=== PATIENT | female | born 1995 ===

== ENCOUNTER 2022-11-30 14:47 | Outpatient (REF) | payer OTHER, SELFPAY ==
[2022-12-01 17:57] LABS: CT PCR DETECTED (Not Detect.); NG PCR NOT DETECTED (Not Detect.)
== END 2022-11-30 14:48 | disposition home or self-care (01) ==
LOC: HO.LAB 14:47
PROVIDERS: Visit Provider Nurse Practitioner Family
DX: Z20.2 Contact with and (suspected) exposure to infections with a predominantly sexual mode of transmission (principal)
CPT/HCPCS: 0353U

== ENCOUNTER 2024-04-12 10:12 | Outpatient (AMB) | payer OTHER, SELFPAY ==
--- OUTSIDE RECORDS SUMMARY | 2024-04-12 10:14 | XMS_ITS | Continuity of Care Document ---
Author Organization [facility] ter Address [address] [place] [phone]- Care Team Providers Care Optometric Technologist Name Role Phone Not on Staff, PCP Primary Care Physician Unavail able [facility] Date(s): 05/14/20 - 05/15/[address] [address]- [facility] Discharge Disposition: A-D/C Home Attending Physician: John Jorge MD Admitting Physician: John Jorge MD Referring Physician: John Jorge MD Allergies, Adverse Reactions, Alerts No Known Medication Allergies Substance Reaction Severity Status NKA Active Immunizations Given and Recorded Vaccine Date Status Refusal Reason tetanus/diphtheria/pertussis, acel(Tdap) 05/08/18 Given Medications No Home Meds Maintenance, 02/12/18 12:16:25 EDT, Compound Start Date: 02/12/18 Status: Ordered Problem List Condition Effective Dates Status Health Status Inform ant Anemia affecting , antepartum(Confirmed) Active Results Orders for Microbiology Reports Name Date Urine Culture (Culture Urine) 05/14/20 Microbiology Reports TEST:Urine Culture STATUS:Auth (Verified) BODY SITE: SOURCE:URINE COLLECTED DATE/TIME:05/14/20 10:20 PM Urine Culture SPECIMEN DESCRIPTION : URINE CLEAN CATCH/MIDSTREAM SPECIAL REQUESTS : NONE CULTURE : NO GROWTH REPORT STATUS : FINAL 05/15/2020 Vital Signs Most recent to oldest [Reference Range]: 1 Weight 59.1 kg (05/14/20 9:40 PM) Oxygen Saturation [94-100 %] 100 % (05/14/20 9:54 PM) Pulse Rate [55-90 bpm] 79 bpm (05/14/20 9:54 PM) Blood Pressure [90-138/55-84 mm Hg] 120/ 55mm Hg (05/14/20 9:54 PM) Respiratory Rate [16-30 br/min] 16 br/mi n (05/14/20 9:54 PM) Temperature [96.8-100.4 DegF] 97.9 DegF (05/14/20 9:40 PM) Mode of Delivery (Oxygen) Room air (05/14/20 9:54 PM) Blood pressure sites Arm, left (05/14/20 9:54 PM) Temperature Route Oral (05/14/20 9:40 PM) Dry Weight 59.1 kg (05/14/20 9:40 PM) Weight Obtained Via Standing scale (05/14/20 9:40 PM) Dry Weight Obtained Via Standing scale (05/14/20 9:40 PM) Social History Social History Type Response Smoking Status Former smoker; Type: Cigarettes entered on: 02/12/18 Sex
--- OUTSIDE RECORDS SUMMARY | 2024-04-12 10:14 | XMS_ITS | Continuity of Care Document ---
Author Organization [facility] Address [address] [place] [id number]- Care Team Providers Care Stained Glass Painter Name Role Phone Not on Staff, PCP Primary Care Physician Unavail able [facility]counter [facility] Date(s): 01/03/22 - 02/02/22 [facility] [address] [place] [id number] Allergies, Adverse Reactions, Alerts No Known Allergies Immunizations Given and Recorded Vaccine Date Status Refusal Reason SARS-CoV-2 (COVID-19) mRNA-1272 vaccine 05/21/21 R ecorded tetanus/diphtheria/pertussis, acel(Tdap) 05/08/18 Given Medications acetaminophen 325 mg oral tablet 650 mg, By Mouth, Every 4 hours, not to exceed 4000 mg/day, # 60 tablet, Refills 0, Tot. Refills 0,Maintenance, 08/13/20 12:55:00 EST, Route to Pharmacy Electronically, [facility]/pharmacy #[id number], Partial fill upon patient request, 153, cm, 08/13/20 4:49:00... Start Date: 08/13/20 Status: Ordered docusate sodium 100 mg oral capsule 1 capsule = 100 mg, By Mouth, 2 times a day, # 60 capsule, 0 Refills, Maintenance, 08/13/20 12:55:00 EST, Capsule, [facility]/pharmacy #[id number], Partial fill upon patient request, 153, cm, 08/13/20 4:49:00 EST, Height, 70, kg, 08/12/20 6:38:00 EST, Dry Weight Start Date: 08/13/20 Status: Ordered ibuprofen 800 mg oral tablet 800 mg, 1, tablet, By Mouth, Every 8 hours, not to exceed 3200 mg/day with food or milk, # 60 tablet, Refills 1, Tot. Refills 1, Maintenance, 08/13/20 12:55:00 EST, Route to Pharmacy Electronically, [facility]/pharmacy #[id number], Partial fill upon patient reque... Start Date: 08/13/20 Status: Ordered No Home Meds Maintenance, 02/12/18 12:16:25 EDT, Compound Start Date: 02/12/18 Status: Ordered simethicone 80 mg oral tablet, chewable 80 mg, Chew, 3 times a day, PRN, # 48 tablet, Refills 0, Tot. Refills 0, Maintenance, Gas, 08/13/2012:55:00 EST, Route to Pharmacy Electronically, [facility]/pharmacy #[id number], Partial fill upon patient request, 153, cm, 08/13/20 4:49:00 EST, Height, 70, kg, 1... Start Date: 08/13/20 Status: Ordered Problem List Condition Effective Dates Status Health Status Inform ant Anemia affecting , antepartum(Confirmed) Active Social History Social History Type Response Smoking Status Former smoker; Type: Cigarettes entered on: 02/12/18 Sex
--- OUTSIDE RECORDS SUMMARY | 2024-04-12 10:14 | XMS_ITS | Continuity of Care Document ---
Author Organization [facility] Address [address] [place] [phone]- Care Team Providers Care Leaflet Or Newspaper Deliverer Name Role Phone Not on Staff, PCP Primary Care Physician Unavail able [facility]counter [facility] Date(s): 02/17/22 - 03/19/22 [facility] [address] [place] [id number] Allergies, Adverse Reactions, Alerts No Known Allergies Immunizations Given and Recorded Vaccine Date Status Refusal Reason SARS-CoV-2 (COVID-19) mRNA-1273 vaccine 05/21/21 R ecorded tetanus/diphtheria/pertussis, acel(Tdap) 05/08/18 Given Medications acetaminophen 325 mg oral tablet 650 mg, By Mouth, Every 4 hours, not to exceed 4000 mg/day, # 60 tablet, Refills 0, Tot. Refills 0,Maintenance, 08/13/20 12:55:00 EST, Route to Pharmacy Electronically, [facility]/pharmacy #[id number], Partial fill upon patient request, 153, [...] 08/13/20 12:55:00 EST, Route to Pharmacy Electronically, [facility]/pharmacy #[id number], Partial fill upon patient reque... Start Date: 08/13/20 Status: Ordered No Home Meds Maintenance, 02/12/18 12:16:25 EDT, Compound Start Date: 02/12/18 Status: Ordered simethicone 80 mg oral tablet, chewable 80 mg, Chew, 3 times a day, PRN, # 48 tablet, Refills 0, Tot. Refills 0, Maintenance, Gas, 08/13/2012:55:00 EST, Route to Pharmacy Electronically, [facility]/pharmacy #[id number], Partial fill upon patient request, 153, cm, 08/13/20 4:49:00 EST, Height, 70, kg, 1... Start Date: 08/13/20 Status: Ordered Problem List Condition Effective Dates Status Health Status Inform ant Anemia affecting , antepartum(Confirmed) Active Social History Social History Type Response Smoking Status Former smoker; Type: Cigarettes entered on: 02/12/18 Sex
--- OUTSIDE RECORDS SUMMARY | 2024-04-12 10:14 | XMS_ITS | Continuity of Care Document ---
Author Organization [facility] ter Address [address] [place] [phone]- Care Team Providers Care Slug Press Operator Name Role Phone Not on Staff, PCP Primary Care Physician Unavail able [facility]counter [facility] Date(s): 07/22/22 - 07/24/[address] [address]- Discharge Disposition: A-D/C Home Attending Physician: John Jorge MD Admitting Physician: John Jorge MD Referring Physician: John Jorge MD Allergies, Adverse Reactions, Alerts No Known Allergies Immunizations Given and Recorded Vaccine Date Status Refusal Reason influenza virus vaccine, inactivated 1 07/24/22 Gi steven influenza virus vaccine, inactivated 10/08/19 Vahid rded SARS-CoV-2 (COVID-19) mRNA-1273 vaccine 04/01/22 R ecorded SARS-CoV-2 (COVID-19) mRNA-1273 vaccine 06/18/21 R ecorded SARS-CoV-2 (COVID-19) mRNA-1273 vaccine 05/21/21 R ecorded tetanus-diphtheria toxoids (Td) 10/08/19 Recorded Meningococcal Conjugate Vaccine 10/08/19 Recorded Meningococcal Conjugate Vaccine 02/04/09 Recorded Measles/Mumps/Rubella Virus Vaccine 10/08/19 Recor ded Measles/Mumps/Rubella Virus Vaccine 04/08/98 Recor ded tetanus/diphtheria/pertussis, acel(Tdap) 05/08/18 Given tetanus/diphtheria/pertussis, acel(Tdap) 08/06/08 Recorded Hepatitis A Pediatric Vaccine 06/21/11 Recorded Hepatitis A Pediatric Vaccine 02/04/09 Recorded Human Papillomavirus Vaccine 02/04/09 Recorded Human Papillomavirus Vaccine 10/07/08 Recorded Human Papillomavirus Vaccine 08/06/08 Recorded Varicella Virus Vaccine 10/07/08 Recorded Varicella Virus Vaccine 11/19/98 Recorded Poliovirus Vaccine, Inactivated 05/30/01 Recorded Poliovirus Vaccine, Inactivated 01/20/97 Recorded Poliovirus Vaccine, Inactivated 96 Recorded Poliovirus Vaccine, Inactivated 96 Recorded diphtheria/tetanus/pertussis, acel(DTaP) 05/30/01 Recorded diphtheria/tetanus/pertussis, acel(DTaP) 04/08/98 Recorded diphtheria/tetanus/pertussis, acel(DTaP) 01/20/97 Recorded diphtheria/tetanus/pertussis, acel(DTaP) 96 Recorded diphtheria/tetanus/pertussis, acel(DTaP) 96 Recorded hepatitis B pediatric vaccine 96 Recorded hepatitis B pediatric vaccine 96 Recorded hepatitis B pediatric vaccine 96 Recorded 1Early/Late Reason: Early/Late Reason: Patient Refused Medications acetaminophen 325 mg oral tablet 650 mg, By Mouth, Every 4 hours, not to exceed 4000 mg/day, # 60 tablet, Refills 0, Tot. Refills 0,Maintenance, 08/13/20 12:55:00 EST, Route to Pharmacy Electronically, [facility]/pharmacy #[id number], Partial fill upon patient request, 153, cm, 08/13/20 4:49:00... Start Date: 08/13/20 Status: Ordered Acetaminophen Tablet 650 mg, Tablet, By Mouth, (1-3), may give 325mg per patient preference and re- dose with 325mg within 4 hours if needed. Patient should only receive a total of 650mg of Acetaminophen every 4 hours., 07/24/22 14:00:00 EST Start Date: 07/24/22 Stop Date: 07/24/22 Status: Completed Acetaminophen Tablet 650 mg, Tablet, By Mouth, (1-3), may give 325mg per patient preference and re- dose with 325mg within 4 hours if needed. Patient should only receive a total of 650mg of Acetaminophen every 4 hours., 07/24/22 2:00:00 EST Start Date: 07/24/22 Stop Date: 07/24/22 Status: Completed docusate sodium 100 mg oral capsule 1 capsule = 100 mg, By Mouth, 2 times a day, # 60 capsule, 0 Refills, Maintenance, 08/13/20 12:55:00 EST, Capsule, [facility]/pharmacy #[id number], Partial fill upon patient [...] 08/13/20 12:55:00 EST, Route to Pharmacy Electronically, [facility]/pharmacy #[id number], Partial fill upon patient reque... Start Date: 08/13/20 Status: Ordered Ibuprofen Tablet 800 mg, Tablet, By Mouth, (4-6), may give 400mg per patient preference and re- dose with 400mg within 8 hours if needed. Patient should only receive a total of 800mg of Ibuprofen every 8 hours., 07/24/22 10:00:00 EST Start Date: 07/24/22 Stop Date: 07/24/22 Status: Completed simethicone 80 mg oral tablet, chewable 80 mg, Chew, 3 times a day, PRN, # 48 tablet, Refills 0, Tot. Refills 0, Maintenance, Gas, 08/13/2012:55:00 EST, Route to Pharmacy Electronically, [facility]/pharmacy #[id number], Partial fill upon patient request, 153, cm, 08/13/20 4:49:00 EST, Height, 70, kg, 1... Start Date: 08/13/20 Status: Ordered Problem List Condition Confirmation Course Effective Dates Status Health St atus Informant Anemia affecting , antepartum Confirmed Active Procedures Procedure Date Related Diagnosis Body Site Status delivery only; 07/22/22 C ompleted Vital Signs Most recent to oldest [Reference Range]: 1 2 3 Height 152.4 cm (07/24/22 8:45 AM) 152.4 cm (07/24/22 12:00 AM) 152.4 cm (07/23/22 4:19 PM) Weight 69 kg (07/22/22 6:14 AM) 69.09 kg (07/21/22 7:39 PM) Oxygen Saturation [94-100 %] 100 % (07/24/22 8:45 AM) 100 % (07/24/22 12:00 AM) 100 % (07/23/22 4:19 PM) Pulse Rate [55-90 bpm] 64 bpm (07/24/22 8:45 AM) 61 bpm (07/24/22 12:00 AM) 80 bpm (07/23/22 4:19 PM) Body Mass Index [18.5-24.99 kg/m2] 29.71 kg/m2 *H* (07/22/22 6:14 AM) 29.75 kg/m2 *H* (07/21/22 7:39 PM) Blood Pressure [90-138/55-84 mm Hg] 127/81mm Hg (07/24/22 8:45 AM) 118/63mm Hg (07/24/22 12:00 AM) 132/57mm Hg (07/23/22 4:19 PM) Respiratory Rate [16-30 br/min] 20 br/min (07/24/22 2:03 PM) 20 br/min (07/24/22 9:58 AM) 20 br/min (07/24/22 9:58 AM) Temperature [96.8-100.4 DegF] 98.4 DegF (07/24/22 8:45 AM) 98.4 DegF (07/24/22 12:00 AM) 98.7 DegF (07/23/22 4:19 PM) Mode of Delivery (Oxygen) Room air (07/24/22 12:00 AM) Room air (07/22/22 4:30 PM) Room air (07/22/22 12:32 PM) Blood pressure sites Arm, right (07/24/22 12:00 AM) Arm, left (07/23/22 12:00 AM) Arm, right (07/22/22 10:02 AM) Temperature Route Oral (07/24/22 8:45 AM) Oral (07/24/22 12:00 AM) Oral (07/23/22 4:19 PM) Dry Weight 69 kg (07/22/22 6:14 AM) 152.4 kg (07/21/22 7:39 PM) Social History Social History Type Response Smoking Status Former smoker; Type: Cigarettes entered on: 5/28/18 Sex Patient Care team information Personnel Name: Not on Staff, PCP
--- OUTSIDE RECORDS SUMMARY | 2024-04-12 10:14 | XMS_ITS | Continuity of Care Document ---
Author Organization [facility] ter Address [address] [place] [phone]- Care Team Providers Care Parts Sales Representative Name Role Phone Alexandra Greco MD Primary Care Physician Encounter [facility] Date(s): 02/26/20 - 02/26/[address] [address]- [facility] Discharge Disposition: A-D/C Home Attending Physician: [...] Inform ant Anemia affecting , antepartum(Confirmed) Active Procedures Procedure Date Related Diagnosis Body Site Status section Complete d Vital Signs Most recent to oldest [Reference Range]: 1 Weight 56.3 kg (02/26/20 9:07 AM) Oxygen Saturation [94-100 %] 100 % (02/26/20 9:07 AM) Pulse Rate [55-90 bpm] 73 bpm (02/26/20 9:07 AM) Blood Pressure [90-138/55-84 mm Hg] 125/ 63mm Hg (02/26/20 9:07 AM) Respiratory Rate [16-30 br/min] 16 br/mi n (02/26/20 9:07 AM) Temperature [96.8-100.4 DegF] 97.8 DegF (02/26/20 9:07 AM) Mode of Delivery (Oxygen) Room air (02/26/20 9:07 AM) Blood pressure sites Arm, right 1 (02/26/20 9:07 AM) Temperature Route Oral (02/26/20 9:07 AM) Weight Obtained Via Standing scale (02/26/20 9:07 AM) 1Result Comment: 24cm small cuff Social History Social History Type Response Smoking Status Former smoker; Type: Cigarettes entered on: 02/12/18 Sex
--- OUTSIDE RECORDS SUMMARY | 2024-04-12 10:14 | XMS_ITS | Continuity of Care Document ---
Author Organization [facility] Address [address] [place] [phone]- Care Team Providers Care Interventional Physiatrist Name Role Phone Not on Staff, PCP Primary Care Physician Unavail able [facility]counter [facility] Date(s): 01/04/22 - 02/03/22 [facility] [address] [place] [id number] Allergies, Adverse Reactions, Alerts No Known Allergies Immunizations Given and Recorded Vaccine Date Status Refusal Reason SARS-CoV-2 (COVID-19) mRNA-4431 vaccine 05/21/21 R ecorded tetanus/diphtheria/pertussis, acel(Tdap) 05/08/18 Given Medications acetaminophen 325 mg oral tablet 650 mg, By Mouth, Every 4 hours, not to exceed 4000 mg/day, # 60 tablet, Refills 0, Tot. Refills 0,Maintenance, 08/13/20 12:55:00 EST, Route to Pharmacy Electronically, [facility]/pharmacy #[id number], Partial fill upon patient request, 153, [...] 08/13/20 12:55:00 EST, Route to Pharmacy Electronically, [facility]/pharmacy #[id number], Partial fill upon patient reque... Start Date: 08/13/20 Status: Ordered No Home Meds Maintenance, 02/12/18 12:16:25 EDT, Compound Start Date: 02/12/18 Status: Ordered simethicone 80 mg oral tablet, chewable 80 mg, Chew, 3 times a day, PRN, # 48 tablet, Refills 0, Tot. Refills 0, Maintenance, Gas, 08/13/2012:55:00 EST, Route to Pharmacy Electronically, [facility]/pharmacy #[id number], Partial fill upon patient request, 153, cm, 08/13/20 4:49:00 EST, Height, 70, kg, 1... Start Date: 08/13/20 Status: Ordered Problem List Condition Effective Dates Status Health Status Inform ant Anemia affecting , antepartum(Confirmed) Active Social History Social History Type Response Smoking Status Former smoker; Type: Cigarettes entered on: 02/12/18 Sex
--- OUTSIDE RECORDS SUMMARY | 2024-04-12 10:14 | XMS_ITS | Continuity of Care Document ---
Author Organization [facility] ter Address [address] [place] [address]- Care Team Providers Care Vertical Boring Mill Operator Name Role Phone Not on Staff, PCP Primary Care Physician Unavail able Encounter [facility] Date(s): 01/15/22 - 02/20/[address] [address]- Attending Physician: John Jorge MD Admitting Physician: John Jorge MD Referring Physician: John Jorge MD Allergies, Adverse Reactions, Alerts No Known Allergies Immunizations Given and Recorded Vaccine Date Status Refusal Reason SARS-CoV-2 (COVID-19) mRNA-2126 vaccine 05/21/21 R ecorded tetanus/diphtheria/pertussis, acel(Tdap) 05/08/18 Given Medications acetaminophen 325 mg oral tablet 650 mg, By Mouth, Every 4 hours, not to exceed 4000 mg/day, # 60 tablet, Refills 0, Tot. Refills 0,Maintenance, 08/13/20 12:55:00 EST, Route to Pharmacy Electronically, [id number], Partial fill upon patient request, [...] 08/13/20 12:55:00 EST, Route to Pharmacy Electronically, [facility]/pharmacy #[id number], Partial fill upon patient reque... Start Date: 08/13/20 Status: Ordered No Home Meds Maintenance, 02/12/18 12:16:25 EDT, Compound Start Date: 02/12/18 Status: Ordered simethicone 80 mg oral tablet, chewable 80 mg, Chew, 3 times a day, PRN, # 48 tablet, Refills 0, Tot. Refills 0, Maintenance, Gas, 08/13/2012:55:00 EST, Route to Pharmacy Electronically, [facility]/pharmacy #[id number], Partial fill upon patient request, 153, cm, 08/13/20 4:49:00 EST, Height, 70, kg, 1... Start Date: 08/13/20 Status: Ordered Problem List Condition Effective Dates Status Health Status Inform ant Anemia affecting , antepartum(Confirmed) Active Social History Social History Type Response Smoking Status Former smoker; Type: Cigarettes entered on: 02/12/18 Sex
[2024-04-12 10:18] VITALS: BP 110/68; PULSE 74; O2SAT 100; BMI 22.6
--- NOTE | 2024-04-12 10:18 | AM.OFFWIN_ITS ---
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 T spot ordered. [facility] Social History Patient Tobacco Use Status: Never used Tobacco Review of Systems Const All systems reviewed & are unremarkable except as noted in HPI and below Physical Exam Vital Signs: Last Vital Signs Pulse 74 04/12/24 10:18 BP 110/68 04/12/24 10:18 Pulse Ox 100 04/12/24 10:18 Oxygen Delivery Method Room Air 04/12/24 10:18 BMI result Body Mass Index 22.6 Const General: no acute distress Orientation/consciousness: patient oriented x3 Eyes General: appearance normal, both eyes and all related structures Resp Effort & Inspection: normal respiratory effort and able to speak in complete sentences Auscultation: clear to auscultation bilaterally Neuro General: patient oriented x3 Psych Mental Status: mental status grossly normal Assessment & Plan Assessment & Plan (1) Screening-pulmonary TB: Code(s): Z11.1 - Encounter for screening for respiratory tuberculosis Plan Patient is 29-year-old female came in today to have an oder for TB titer 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 T spot ordered. Orders: Orders T Spot TB Today Z11.1 - Encounter for screening for respiratory tuberculosis Coding Level of Care Code Est Pt Level 3 (33704) Diagnoses Screening-pulmonary TB Z11.1
== END 2024-04-12 14:32 | disposition home or self-care (01) ==
PROVIDERS: Visit Provider Internal Medicine
DX: Z11.1 Encounter for screening for respiratory tuberculosis (principal)
CPT/HCPCS: 99213

== ENCOUNTER 2024-04-12 10:26 | Outpatient (REF) | payer OTHER, SELFPAY ==
[2024-04-14 19:39] LABS: TS Negative Control Passed; TS Panel A 2; TS Panel B 2; TS Positive Control Passed; TSpotTB Negative (Negative)
== END 2024-04-12 10:27 | disposition home or self-care (01) ==
LOC: HO.HMGCLDS 10:26
PROVIDERS: Visit Provider Internal Medicine
DX: Z11.1 Encounter for screening for respiratory tuberculosis (principal)
CPT/HCPCS: 36415; 86481

== ENCOUNTER 2024-04-19 21:01 | Emergency (ER) | payer OTHER, SELFPAY ==
[2024-04-19 21:04] VITALS: BP 114/67; PULSE 71; RESP 14; TEMP 37.3; O2SAT 99; BMI 23.2
[2024-04-19 23:54] VITALS: BP 114/82; PULSE 77; RESP 16; TEMP 36.1; O2SAT 97
--- NOTE | 2024-04-20 00:16 | ED.DENTAL ---
HPI - Dental/Oral General Chief complaint: Dental/Oral Stated complaint: dental pain Time Seen by Provider: 04/20/24 00:01 Source: patient and RN notes reviewed Mode of arrival: ambulatory Limitations: no limitations History of Present Illness ED Provider: Nuris Hernandez PA-C HPI Narrative: This is a 29-year-old female who presents emergency department with complaints of right upper dental pain x3 days. Patient states that she has a known broken tooth which she broke several weeks ago. She has had increased pain to this area. She denies any fevers or chills. She has a dental appointment on May 02. She has been taking her ibuprofen with minimal relief. No other complaints or concerns at this time. MD Complaint: tooth injury Location: Tooth # (1) Onset (ago): day(s) Duration: constant Severity: moderate Relieving factors: NSAIDs Exacerbating factors: chewing Context: history of dental caries and poor dental care Treatment prior to arrival: none Related Data Previous Rx's ?Medication ?Instructions ?Recorded amoxicillin 875 mg-potassium 1 tab PO BID 7 days #14 tabs 04/20/24 clavulanate 125 mg tablet ibuprofen 600 mg tablet 600 mg PO Q6H PRN pain #30 tabs 04/20/24 Allergies Allergy/AdvReac Type Severity Reaction Status Date / Time No Known Drug Allergies Allergy Mild NONE Verified 04/19/24 21:05 [NO KNOWN DRUG ALLERGIES] Review of Systems Review of Systems: Yes all other systems are reviewed and are negative Constitutional: Constitutional: Reports as per [facility] Social History Social History Patient Tobacco Use Status: Never used Tobacco Advance Directives: No Advance Directives Information Provided: No Do you have a plan to hurt others: No Plan Physical Exam Vital Signs: Vital Signs: Last Vital Signs Temp 97.0 F 04/19/24 23:54 Pulse 77 04/19/24 23:54 Resp 16 04/19/24 23:54 BP 114/82 04/19/24 23:54 Pulse Ox 97 04/19/24 23:54 O2 Del Method Room Air 04/19/24 23:54 BMI result Body Mass Index 23.2 Const: General: cooperative, comfortable and no acute distress Orientation/consciousness: patient oriented x3 Limitations: no limitations HEENT: Other: Tooth 1, with no obvious fracture identified. She has tenderness palpation in this region. No gingival erythema, fluctuance, warmth or induration noted. Able to open and close mouth without difficulty. No facial swelling. Head: Yes normal to inspection, Yes normocephalic and Yes atraumatic Ears: hearing grossly normal bilaterally General nose exam: Normal external nose present Face and sinus: Yes normal facial exam Mouth: Normal oral and palatal mucosa present, oropharynx normal and moist mucous membranes Throat: Yes posterior oropharynx normal Eyes: General: appearance normal, both eyes and all related structures Eyelids: Yes eyelids normal Conjunctivae: conjunctivae normal Sclerae: sclerae normal Pupils: Equal, round and reactive pupils present EOM: EOMs intact bilaterally Neck: Neck: Yes normal visual inspection, Yes full ROM and Yes no lymphadenopathy Lymphatic: no lymphadenopathy noted Chest: Chest palpation & inspection: normal inspection of the chest Resp: Effort & Inspection: normal respiratory effort and able to speak in complete sentences Auscultation: clear to auscultation bilaterally, no crackles, no rales, no rhonchi and no wheezes Cardio: Rate: regular rate Rhythm: regular rhythm Heart sounds: S1 normal heart sound present and S2 normal heart sound present GI: Inspection: Yes normal to inspection Skin: General skin exam: no rashes or lesions noted Trauma: no lacerations or abrasions Wounds: no wounds Neuro: General: patient oriented x3 and moves all extremities Cranial nerves: Yes Equal, round and reactive pupils present Extrem: General: Yes normal to inspection Right upper extremity: normal to inspection Left upper extremity: normal to inspection Right lower extremity: normal to inspection Left lower extremity: normal to inspection Medical Decision Making Medical Decision Making MDM Narrative: This is a 29-year-old female who presents emergency department with complaints of right upper dental pain x3 days. On arrival, vital signs within normal limits. She has tenderness palpation in her right upper tooth. She has known dental fracture in this area. She has follow-up with a dentist on May 02. No fevers or chills. She has no obvious dental abscess noted on examination. Will treat with course of Augmentin, 1st dose given in the department today. Given strict return precautions. She understands agrees with plan. Patient stable for discharge. Differential Diagnosis Differential Diagnoses: The differential diagnosis associated with the presentation includes Dental fracture, decay, abscess, caries Discharge Plan Discharge Clinical Impression: Toothache Patient Disposition: Home, Self-Care Instructions: Toothache (ED) Additional Instructions: You were seen in the emergency department due to a broken tooth. Please take Augmentin twice a day for the next 7 days. Drink plenty of fluids get plenty of rest. You may alternate between ibuprofen and or Tylenol as needed for pain. You need to follow-up with your dentist. Call on Monday to make an appointment. If any new or worsening symptoms occur including but not limited to inability to swallow, worsening pain, chest pain, shortness breath, facial swelling, please return for re-evaluation. Prescriptions: New amoxicillin-pot clavulanate 875-125 mg tablet 1 tab PO BID 7 Days Qty: 14 0RF ibuprofen 600 mg tablet 600 mg PO Q6H PRN (Reason: pain) Qty: 30 0RF Print Language: Afghan
[2024-04-20] MEDS: Ibuprofen 600 MG TABLET PO (00:33)
[2024-04-20] MEDS: Amoxicillin/Potassium Clav 875 MG TABLET PO (00:33)
[2024-04-20 00:38] VITALS: BP 114/82; PULSE 77; RESP 16; TEMP 36.1; O2SAT 97
== END 2024-04-20 00:39 | disposition home or self-care (01) ==
PROVIDERS: Emergency Provider Emergency Medicine; PCP Internal Medicine
DX: K08.89 Other specified disorders of teeth and supporting structures (principal); K02.9 Dental caries, unspecified
CPT/HCPCS: 99283